=== PATIENT | female | born 1955 | race Two or more races ===

== ENCOUNTER 2019-09-21 12:21 | Emergency (ER) | payer OTHER ==
[~2019-09-21] VITALS: Ht 154.9 cm; Wt 67.1 kg
--- NOTE | 2019-09-21 13:25 | NUR ---
ED Nurse Note: pt relates having bilateral leg pain that worsens with ambulation. pain radiates to her left thigh/hip area. pt denies dyspnea, cp, chest pressure but does relate felt nausea yesterday, none now. family at bedside. pt tolerates lab draw and iv start well. bedside bilat venous duplex being done
[2019-09-21 13:30] VITALS: BP 107/69
--- NOTE | 2019-09-21 13:36 | Emergency Room Report ---
History of Present Illness General Chief Complaint: Pain Source: Family Member Present Illness HPI 63-year-old female with history of hypertension currently under the care of family care physician taking lisinopril 40 mg daily and water pill due to fluid retention in both legs here with daughter complaining of 2 weeks of excess fluid retention edema in both ankles. Reports that now is radiating to both calves and thighs. Rating a 10 out of 10 at this time patient is ambulating to the ED with a cane. Denies any motor or sensory deficits. Denies any general or unilateral weakness. Denies any headache and dizziness, chest pain, palpitation however does complain of shortness of breath upon walking. Does not know whether she has a good renal function. Reports that primary doctor has told her to take Tylenol for pain and swelling. Denies any recent injury or fall. Is not currently on any blood thinners. Allergies: Coded Allergies: No Known Allergies (Unverified , 09/21/19) Patient History Past Surgical History: unable to obtain Pertinent Family History: none Now: No Immunizations: UTD Reviewed Nursing Documentation: PMH: Agreed; PSxH: Agreed Nursing Documentation-PMH Hx Cardiac Problems: Yes - HTN, Hyperlipidemia Review of Systems All Other Systems: negative except mentioned in HPI Physical Exam Vital Signs Date Time Temp Pulse Resp B/P (MAP) Pulse Ox O2 Delivery O2 Flow Rate FiO2 09/21/19 12:30 98.8 95 20 107/69 (82) 94 Room Air Sp02 EP Interpretation: reviewed, normal General Appearance: no apparent distress, alert, GCS 15, non-toxic Head: normocephalic, atraumatic Eyes: bilateral eye normal inspection, bilateral eye PERRL ENT: hearing grossly normal, normal pharynx, no angioedema, normal voice Neck: full range of motion, supple/symm/no masses Respiratory: chest non-tender, lungs clear, normal breath sounds, no rhonchi, no wheezing, speaking full sentences Cardiovascular #1: regular rate, rhythm, no edema, no murmur, normal capillary refill Cardiovascular #2: 2+ dorsalis pedis (R), 2+ dorsalis pedis (L) Gastrointestinal: normal bowel sounds, non tender, soft, non-distended, no guarding, no rebound Rectal: deferred Genitourinary: no CVA tenderness Musculoskeletal: back normal, normal range of motion, no calf tenderness, pelvis stable Neurologic: alert, motor strength/tone normal, oriented x3, sensory intact, responsive, speech normal Psychiatric: judgement/insight normal, memory normal, mood/affect normal, no suicidal/homicidal ideation Skin: no rash Lymphatic: no adenopathy Medical Decision Making PA Attestation All my diagnosis and treatment plans were reviewed ad discussed with my supervising physician Dr. Witt Diagnostic Impression: Primary Impression: Leg edema Additional Impressions: Acute kidney injury UTI (urinary tract infection) ER Course 63-year-old female with history of hypertension currently under the care of family care physician taking lisinopril 40 mg daily and water pill due to fluid retention in both legs here with daughter complaining of 2 weeks of excess fluid retention edema in both ankles. Reports that now is radiating to both calves and thighs. Rating a 10 out of 10 at this time patient is ambulating to the ED with a cane. Denies any motor or sensory deficits. Denies any general or unilateral weakness. Denies any headache and dizziness, chest pain, palpitation however does complain of shortness of breath upon walking. Does not know whether she has a good renal function. Reports that primary doctor has told her to take Tylenol for pain and swelling. Denies any recent injury or fall. Is not currently on any blood thinners. Ddx considered but are not limited to : Cellulitis, DVT, superficial infection, abscess, water retention, peripheral arterial disease, Vital signs: are WNL, pt. is afebrile H&PE are most consistent with: Leg edema, acute kidney injury due to elevated BUN and creatinine, incidental finding of UTI ORDERS: CBC, CMP, coagulation studies, UA, venous duplex and arterial duplex ultrasound, chest x-ray, EKG ED INTERVENTIONS: None required at this time. DISCHARGE: At this time pt. is stable for d/c to home. Will provide printed patient care instructions, and any necessary prescriptions. Care plan and follow up instructions have been discussed with the patient prior to discharge. Patient to follow-up with primary care provider for referral to supervisor aluminum fabrication as well as meat seafood associate. Patient understands and agrees with the above treatment. Advised to continue taking Tylenol and not limited ibuprofen family due to elevated BUN and creatinine. If worsening symptoms return to the emergency room EKG Diagnostic Results Rate: normal Rhythm: NSR ST Segments: no acute changes Other Impression No acute ST changes Chest X-Ray Diagnostic Results Chest X-Ray Diagnostic Results : Chest X-Ray Ordered: Yes # of Views/Limited/Complete: 1 View Indication: Shortness of Breath EP Interpretation: Yes MIGUEL Xray: Interpretation reviewed, by supervising MD, and agrees with findings. Interpretation: no consolidation, no effusion, no pneumothorax Impression: No acute disease Electronically Signed by: Anthony Chong PA-C CT/MRI/US Diagnostic Results CT/MRI/US Diagnostic Results #1: Imaging Test Ordered: Bilateral venous duplex ultrasound Impression No DVT CT/MRI/US Diagnostic Results #2: Imaging Test Ordered: Bilateral arterial duplex ultrasound Impression No PAD Last Vital Signs Date Time Temp Pulse Resp B/P (MAP) Pulse Ox O2 Delivery O2 Flow Rate FiO2 09/21/19 12:30 98.8 95 20 107/69 (82) 94 Room Air Disposition: HOME, SELF-CARE Condition: Stable Scripts Nitrofurantoin Monohyd/M-Cryst* (MACROBID 100 MG*) 100 Mg Capsule 100 MG ORAL EVERY 12 HOURS for 7 Days, #14 CAP Prov: Anthony Dowd 09/21/19 Patient Instructions: Edema, [id number] Additional Instructions: Follow-up with your primary care provider for referral to supervisor aluminum fabrication, the adjustment to the dose of your water pill to be made by either your primary care physician or your supervisor aluminum fabrication. Elevate legs when sitting down. He can take low dose of anti-inflammatories however continue with taking Tylenol daily basis. If worsening symptoms return to the emergency room Anthony Dowd Sep 21, 2019 13:36
[2019-09-21 13:38] LABS: BASOPHILS % (AUTO) 0.4 % (0.0-2.0); HEMATOCRIT 41.6 % (37.0-47.0); HEMOGLOBIN 14.1 G/DL (12.0-16.0); LYMPHOCYTES % (AUTO) 14.1 % (20.0-45.0); MEAN CORPUSCULAR VOLUME 84 FL (80-99); MONOCYTES % (AUTO) 8.4 % (1.0-10.0); PLATELET COUNT 321 K/UL (150-450); RED BLOOD COUNT 4.95 M/UL (4.20-5.40); RED CELL DISTRIBUTION WIDTH 10.4 % (11.6-14.8)
[2019-09-21] MEDS ORDERED: IBUPROFEN600 MG ORAL (13:39)
[2019-09-21] MEDS ORDERED: ZOFRAN4 M1 ORAL (13:39)
[2019-09-21 13:53] LABS: ANION GAP 16 mmol/L (5-15); BLOOD UREA NITROGEN 21 mg/dL (7-18); CALCIUM 10.3 MG/DL (8.5-10.1); CARBON DIOXIDE 23 MMOL/L (21-32); CHLORIDE 97 MMOL/L (98-107); CREATININE 1.4 MG/DL (0.55-1.30); POTASSIUM 3.9 MMOL/L (3.5-5.1); SODIUM 136 MMOL/L (136-145)
[2019-09-21 14:04] LABS: ALANINE AMINOTRANSFERASE 19 U/L (12-78); ALBUMIN 4.2 G/DL (3.4-5.0); ALBUMIN/GLOBULIN RATIO 0.8 (1.0-2.7); ALKALINE PHOSPHATASE 104 U/L (46-116); ASPARTATE AMINO TRANSFERASE 13 U/L (15-37); BILIRUBIN,TOTAL 0.8 MG/DL (0.2-1.0)
[2019-09-21 14:28] LABS: APPEARANCE,URINE CLEAR; BILIRUBIN, URINE NEGATIVE (NEGATIVE); COLOR,URINE YELLOW; GLUCOSE, URINE (UA) NEGATIVE (NEGATIVE); KETONES,URINE 1+ (NEGATIVE); LEUKOCYTE ESTERASE ,URINE 1+ (NEGATIVE); NITRITE,URINE NEGATIVE (NEGATIVE); PH,URINE 5 (4.5-8.0); PROTEIN,URINE 2+ (NEGATIVE); UROBILINOGEN,URINE NORMAL MG/DL (0.0-1.0)
[2019-09-21] MEDS ORDERED: NITROFURANTOIN100 M2 ORAL (14:49)
--- NOTE | 2019-09-21 15:04 | Diagnostic Imaging Report ---
Indication: Dyspnea Comparison: None A single view chest radiograph was obtained. Findings: No definite infiltrate or pulmonary vascular congestion identified. There is constellation of the mitral annulus. The heart is enlarged. The aorta is mildly enlarged consistent with atherosclerotic vascular disease. The bones are osteopenic. Impression: No acute disease
--- NOTE | 2019-09-21 15:05 | NUR ---
ER DISCHARGE NOTE: Patient is cleared to be discharged per ERMD, pt is aox4, on room air, with stable vital signs. pt was given dc and prescription instructions, pt was able to verbalize understanding, pt id band and iv site removed without complications. pt is able to ambulate with steady gait. pt took all belongings. copies of vascular us given to pt. with lab copies to see pmd on saturday at her scheduled appt.
[2019-09-21 15:07] VITALS: BP 117/72
--- NOTE | 2019-09-21 15:11 | Diagnostic Imaging Report ---
Indication:Leg pain and swelling Technique: Grayscale and duplex Doppler imaging of the arteries in both lower extremities performed in real time from the common femoral artery to trifurcation arteries in an emergency setting. No ABIs obtained. Comparison: None Findings: Normal duplex Doppler evaluation of the arteries within both lower extremities performed. Triphasic waveforms demonstrated throughout both common femoral, superficial femoral and popliteal arteries bilaterally. The vessels appear widely patent. There is no visualized stenosis. Below the knee, the posterior, peroneal and anterior tibial arteries are identified and demonstrate biphasic to triphasic flow. IMPRESSION: No evidence of arterial occlusive disease within the lower extremities.
== END 2019-09-21 15:07 | disposition home or self-care (01) ==
LOC: EMR 14:06
DX: R60.0 Localized edema (principal); N17.9 Acute kidney failure, unspecified; N39.0 Urinary tract infection, site not specified; I10 Essential (primary) hypertension; E78.5 Hyperlipidemia, unspecified
CPT/HCPCS: 36415; 71045; 80053; 81003; 83880; 84484; 85025; 85610; 85730; 93005; 93925; 93970; Z7502; 99284